=== PATIENT | male | born 1945 | race Caucasian/White ===

== ENCOUNTER 2023-03-03 10:48 | Inpatient (IN) | payer OTHER ==
[2023-02-25 14:59] LABS: BASOPHILS % (AUTO) 0.5 % (0-1); EOSINOPHILS # (AUTO) 0.1 X10'3 (0-0.9); EOSINOPHILS % (AUTO) 1.8 % (0-6); LYMPHOCYTES # (AUTO) 2.2 X10'3 (1.1-4.8); LYMPHOCYTES % (AUTO) 37.1 % (21-51); MEAN CORPUSCULAR HGB CONC 34.1 g/dL (33.0-36.5); MEAN CORPUSCULAR VOLUME 96.8 FL (78-98); MEAN PLATELET VOLUME 8.5 FL (7.4-10.4); MONOCYTES # (AUTO) 0.6 X10'3 (0-0.9); MONOCYTES % (AUTO) 9.6 % (2-12); PRE OP HEMATOCRIT 44.6 % (42.0-52.0); PRE OP HEMOGLOBIN 15.2 g/dL (14.0-17.9); PRE OP PLATELET COUNT 171 X10'3 (140-440); PRE OP WHITE BLOOD COUNT 5.8 10'3 (4.8-10.8); RED BLOOD COUNT 4.61 X10'6 (4.70-6.10); RED CELL DISTRIBUTION WIDTH 13.9 % (11.5-14.5)
[2023-02-25 15:15] LABS: ALBUMIN 3.8 G/DL (3.4-5.0); ALBUMIN/GLOBULIN RATIO 1.1 (1.1-1.5); ALKALINE PHOSPHATASE 68 IU/L (46-116); BLOOD UREA NITROGEN 12 MG/DL (7-18); CALCIUM 9.1 MG/DL (8.5-10.1); CHLORIDE 104 MMOL/L (99-107); PRE OP ALT 29 U/L (30-65); PRE OP ANION GAP 8 (8-16); PRE OP AST 19 U/L (10-37); PRE OP BILIRUB, TOTAL 0.4 MG/DL (0.0-1.0); PRE OP GLUCOSE 108 MG/DL (70-104); PRE OP POTASSIUM 4.4 MMOL/L (3.4-5.1); PRE OP SODIUM 138 MMOL/L (135-145); TOTAL CARBON DIOXIDE 26.3 MMOL/L (24-32); TOTAL PROTEIN 7.3 G/DL (6.4-8.2); eGFR 72 ML/MIN
[2023-03-03] VITALS (19 sets, daily range): BP systolic 98–152; BP diastolic 64–94; PULSE 66–103; RESP 15–20; TEMP 98–98.4; O2SAT 93–100
[~2023-03-03] VITALS: Ht 172.7 cm; Wt 67.7 kg
[~2023-03-03 10:48] MED LIST: LOVA20TA2 PO; MULT-1085 PO; cefazolin 2gm/D5W 100mL 100 ML IV ONE; famotidine 20mg tablet PO ONE; ringers solution, lacted 1,000 ML IV SCH; tranexamic acid 650mg tablet PO ONE; vancomycin 1,500 MG in NS 300ml IV soln IV ONE; vancomycin/NS 1 GM in NS 250 ML IV ONE
[2023-03-03] MEDS ORDERED: morphine 2 MG/ML inj. syringe IV PRN (12:00)
[2023-03-03] MEDS ORDERED: morphine 4 MG/ML inj SYRINge IV PRN (12:00)
[2023-03-03] MEDS ORDERED: proCHLORperazine 10 MG/2 ml inj IV PRN (12:00)
[2023-03-03] MEDS ORDERED: meperidine/PF 25mg/ml syringe IV PRN ×3 (12:00)
[2023-03-03] MEDS ORDERED: ondansetron/PF 4mg/2ml inj IV PRN ×2 (12:00→15:55)
[2023-03-03] MEDS ORDERED: ringers solution, lacted 1,000 ML IV SCH (12:00)
--- NOTE | 2023-03-03 13:00 | NUR ---
PT WAS ABLE TO DO ALL 5 SHOWERS AND OINTMENT PRIOR TO SX TODAY, LEFT ARM HAS GOOD CIRCULATION, PINK WARM FINGERS, PT WAS ABLE TO REVIEW ALL JOINT INFORMATION.
[2023-03-03] MEDS ORDERED: ROPIVAcaine 0.5% (5mg/ml) 30ml vial IJ ONE (14:00)
[2023-03-03] MEDS ORDERED: ROPIVAcaine 0.5% (5mg/ml) 30ml vial ONE ×2 (14:01→14:11)
[2023-03-03] MEDS ORDERED: fentaNYL/PF 50MCG/1 ML 2ML syringe ONE (14:10)
[2023-03-03] MEDS ORDERED: midazolam 1 mg/ML 2ml injection ONE (14:11)
[2023-03-03] MEDS ORDERED: LIDOcaine 2% (20mg/ml) 5ml vial ONE (14:11)
[2023-03-03] MEDS ORDERED: propofol inj 20 ML IV ONE (14:11)
[2023-03-03] MEDS ORDERED: ondansetron/PF 4mg/2ml inj ONE (14:17)
[2023-03-03] MEDS ORDERED: sevoflurane 250ml liquid IH ONE (14:17)
[2023-03-03] MEDS ORDERED: dexamethasone sod phosphate 10mg/ml inj ONE (14:17)
[2023-03-03] MEDS ORDERED: magnesium hydroxide 30ml (MOM) UD suspension PO PRN (15:55)
[2023-03-03] MEDS ORDERED: acetaminophen 325mg tablet PO PRN (15:55)
[2023-03-03] MEDS ORDERED: naloxone 0.4 mg/ml inj IV PRN (15:55)
[2023-03-03] MEDS ORDERED: oxyCODONE IR 5mg (immed. release) tablet PO PRN ×2 (15:55)
[2023-03-03] MEDS ORDERED: HYDROcodone/acetaminophen 10/325mg tab PO PRN ×2 (15:55)
[2023-03-03] MEDS ORDERED: diphenhydrAMINE 25mg capsule PO PRN ×2 (15:55)
[2023-03-03] MEDS ORDERED: HYDROmorphone inj. 0.5 MG/0.5 ML DISP.SYRIN IV PRN (15:55)
[2023-03-03] MEDS ORDERED: bisacodyl 10mg suppository rectal RC PRN (15:55)
[2023-03-03] MEDS ORDERED: HYDROmorphone 1 mg/ml syringe IV PRN (15:55)
[2023-03-03] MEDS ORDERED: ceFAZolin/D5W- 1GM premix 50 ML IV SCH (16:00)
--- NOTE | 2023-03-03 16:08 | NUR ---
Received from OR via HOSPITAL BED, accompanied by Anesthesiologist and report given by [facility] Anesthesiologist. PATIENT WAKING UP, DENIES PAIN, V/S WNL, SCD ON , PIV 20G RIGHT HAND-20G, DRESSING SHOULDER WRAP TO LEFT SIDE C/D/I WITH COLD POWDER PACK AND ARM SLING. ON-Q SITE DRESSING C/D/I. Addendum: 03/03/23 at 1654 by Armand Montano RN Amended: Links added.
[2023-03-03] MEDS ORDERED: ROPIVAcaine 0.2% (10 MG/5 ML) BOLUS INJECTION INTERSCALE PRN (16:15)
[2023-03-03] MEDS ORDERED: ROPIVAcaine 0.2%/PF PUMP/bolus 545 ML INTERSCALE SCH (16:15)
--- NOTE | 2023-03-03 17:18 | NUR ---
PATIENT HAS MET ALL CRITERIA FOR TRANSFER TO ORTHO FLOOR. VSS. DRESSINGS INTACT. BED LOW, CALL LIGHT PRESENT AND 2 RAILS UP. RN PRESENT TO ACCEPT CARE OF PATIENT AND REPORT HAS BEEN CALLED. ALL QUESTIONS ANSWERED TO ACCEPTING RN. Addendum: 03/03/23 at 1727 by Armand Montano RN Amended: Links added.
--- NOTE | 2023-03-03 18:00 | NUR ---
I have reviewed and agree with interventions, assessments, and documentation by Marine Sterling LVN.
--- NOTE | 2023-03-03 18:00 | NUR ---
Patient in room ORTHO 4013. I have received report from eugenia CHEN and had the opportunity to ask questions and assume patient care.
[2023-03-03] MEDS ORDERED: [UNRECOGNIZED DRUG - OTHER] PO (19:32)
--- NOTE | 2023-03-03 19:35 | NUR ---
patient stated that he is needing to take digestive enzymes when eating food due to no gallbladder. I verbally spoke with Dr. Medeiros and he gave the okay for patient to have. I placed medication in the home med rec and sent medication to the pharmacy for verifications. Once verified then patient will take medication. Patient is aware and verbalized understanding
[2023-03-03] MEDS ORDERED: ENZY1CAP5 PO (19:53)
[2023-03-03] MEDS ORDERED: vancomycin/NS 1 GM ADD-VANTAGE 250 ML IV SCH (20:00)
[2023-03-03] MEDS: DIGESTIVE ENZYMES PO SCH (20:15)
--- NOTE | 2023-03-03 20:20 | NUR ---
Agree with Bianka Thomas Lvn physical assessment.
[2023-03-03] MEDS: ceFAZolin/D5W- 1GM premix 50 ML IV SCH (20:49)
[2023-03-03] MEDS ORDERED: sennosides 8.6mg tablet PO SCH (21:00)
[2023-03-03] MEDS: potassium cl 20mEq in 1/2 NS 1,000 ML IV SCH (23:55)
[2023-03-04 02:00] VITALS: BP 112/64; PULSE 103; RESP 16; TEMP 98.8; O2SAT 94
[2023-03-04] MEDS ORDERED: vancomycin/NS 1 GM ADD-VANTAGE 250 ML IV SCH (02:00)
[2023-03-04] MEDS: potassium cl 20mEq in 1/2 NS 1,000 ML IV SCH ×2 (02:19→07:55)
--- NOTE | 2023-03-04 03:10 | NUR ---
Patient in room ORTHO 4013. I have received report from Bianka and had the opportunity to ask questions and assume patient care.
--- NOTE | 2023-03-04 03:27 | NUR ---
Problems reprioritized. Patient report given, questions answered & plan of care reviewed with Aziza SCALES.
[2023-03-04] MEDS: ceFAZolin/D5W- 1GM premix 50 ML IV SCH (05:07)
[2023-03-04 06:00] VITALS: BP 114/69; PULSE 94; RESP 16; TEMP 98.7; O2SAT 95
[2023-03-04 07:08] LABS: BASOPHILS % (AUTO) 0 % (0-1); EOSINOPHILS % (AUTO) 0 % (0-6); HEMATOCRIT 42.1 % (42.0-52.0); LYMPHOCYTES # (AUTO) 0.6 X10'3 (1.1-4.8); MEAN CORPUSCULAR HEMOGLOBIN 32.3 PG (27.0-31.0); MEAN CORPUSCULAR HGB CONC 33.3 g/dL (33.0-36.5); MEAN PLATELET VOLUME 9.1 FL (7.4-10.4); MONOCYTES # (AUTO) 0.5 X10'3 (0-0.9); MONOCYTES % (AUTO) 3.7 % (2-12); NEUTROPHILS # (AUTO) 11.2 X10'3 (1.8-7.7); NEUTROPHILS % (AUTO) 91.3 % (42-75); PLATELET COUNT 161 X10'3 (140-440); RED BLOOD COUNT 4.34 X10'6 (4.70-6.10); RED CELL DISTRIBUTION WIDTH 13.9 % (11.5-14.5); WHITE BLOOD COUNT 12.3 X10'3 (4.5-11.0)
[2023-03-04 07:14] LABS: ANION GAP 11 (8-16); CHLORIDE 103 MMOL/L (99-107); POTASSIUM 4.3 MMOL/L (3.5-5.1); SODIUM 137 MMOL/L (135-145)
[2023-03-04] MEDS ORDERED: atorvastatin 10mg tablet PO SCH (08:00)
[2023-03-04] MEDS ORDERED: multivitamins, therapeutics tablet PO SCH (08:00)
[2023-03-04] MEDS: DIGESTIVE ENZYMES PO SCH (08:00)
[2023-03-04 08:21] VITALS: RESP 16; O2SAT 95
[2023-03-04] MEDS ORDERED: aspirin 325mg tablet PO SCH (08:30)
[2023-03-04 10:00] VITALS: BP 108/76; PULSE 102; RESP 16; TEMP 97.4; O2SAT 95
--- NOTE | 2023-03-04 12:02 | NUR ---
Reviewed discharge instructions with patient and spouse. Patient verbalized understanding. Patient was dressed with the assistance of staff, his belongings were gathered and patient was wheeled downstairs to be driven home by his spouse.
--- NOTE | 2023-03-04 14:51 | NUR ---
Joint surgery consult: Pt is s/p shoulder surgery per EMR. Pt was discharged earlier today therefore unable to provide high protein education in person. Mailed written high protein education with RD contact information to patient's home address provided in EMR. Addendum: 03/04/23 at [address] Amended: Links added.
== END 2023-03-04 12:05 | disposition home or self-care (01) | DRG 483 ==
LOC: PAS IN 10:48 → ORTHO 4S 17:20
PROVIDERS: ADMIT Orthopaedic Surgery; ATTEND Orthopaedic Surgery
PROC: 3E0T3BZ Introduction of Anesthetic Agent into Peripheral Nerves and Plexi, Percutaneous Approach (ICD-10-PCS; 2023-03-03)
PROC: 0RRK00Z Replacement of Left Shoulder Joint with Reverse Ball and Socket Synthetic Substitute, Open Approach (ICD-10-PCS; principal; 2023-03-03 14:17)
DX: M19.012 Primary osteoarthritis, left shoulder (principal); M75.102 Unspecified rotator cuff tear or rupture of left shoulder, not specified as traumatic
CPT/HCPCS: 36415; 80051; 80053; 82948; 85025; 87081; 97110; 97161; 97530; G0378; J0690; J1100; J2175; J2250; J2405; J2704; J2795; J3010; J3370; J3480; J3490; J7120